=== PATIENT | male | born 1995 | race Two or more races ===

== ENCOUNTER 2018-03-02 06:49 | Emergency (ER) | payer MEDICAID ==
[~2018-03-02] VITALS: Ht 180.3 cm; Wt 64.0 kg
[2018-03-02] MEDS ORDERED: AMOX-422 PO (07:28)
[2018-03-02] MEDS ORDERED: HYDR-4353 PO (07:28)
[2018-03-02 07:36] VITALS: BP 122/89
== END 2018-03-02 07:37 | disposition home or self-care (01) ==
LOC: ER 06:50
DX: K04.7 Periapical abscess without sinus (principal); K02.9 Dental caries, unspecified; Z79.899 Other long term (current) drug therapy
CPT/HCPCS: 99283

== ENCOUNTER 2019-02-05 15:51 | Emergency (ER) | payer MEDICAID ==
[~2019-02-05] VITALS: Ht 180.3 cm; Wt 68.2 kg
[2019-02-05] MEDS ORDERED: normal saline 1000ML IV soln IV ONE (17:25)
[2019-02-05 17:55] LABS: BASOPHILS % (AUTO) 0.3 % (0-1); EOSINOPHILS # (AUTO) 0.1 X10'3 (0-0.9); EOSINOPHILS % (AUTO) 1.7 % (0-6); HEMOGLOBIN 14.8 g/dl (14.0-17.9); LYMPHOCYTES # (AUTO) 2.5 X10'3 (1.1-4.8); MEAN CORPUSCULAR HEMOGLOBIN 28.5 PG (27.0-31.0); MEAN CORPUSCULAR HGB CONC 33.7 g/dL (33.0-36.5); MEAN CORPUSCULAR VOLUME 84.7 FL (78-98); MEAN PLATELET VOLUME 8.1 FL (7.4-10.4); MONOCYTES # (AUTO) 0.9 X10'3 (0-0.9); MONOCYTES % (AUTO) 11.1 % (2-12); NEUTROPHILS # (AUTO) 4.7 X10'3 (1.8-7.7); NEUTROPHILS % (AUTO) 56.9 % (42-75); PLATELET COUNT 254 X10'3 (140-440); RED CELL DISTRIBUTION WIDTH 13.4 % (11.5-14.5); WHITE BLOOD COUNT 8.3 X10'3 (4.5-11.0)
[2019-02-05 18:07] LABS: PARTIAL THROMBOPLASTIN TIME 28 SECONDS (22-32)
[2019-02-05 18:23] LABS: ALANINE AMINOTRANSFERASE 141 U/L (12-78); ALBUMIN/GLOBULIN RATIO 0.8 (1.1-1.5); ALKALINE PHOSPHATASE 118 IU/L (46-116); ANION GAP 7 (8-16); ASPARTATE AMINO TRANSFERASE 56 U/L (10-37); BILIRUBIN,TOTAL 0.5 MG/DL (0.1-1.0); BLOOD UREA NITROGEN 7 MG/DL (7-18); BUN/CREATININE RATIO 7.2 (5.4-32.0); CALCIUM 9.4 MG/DL (8.5-10.1); CHLORIDE 103 MMOL/L (99-107); CREATININE 0.97 MG/DL (0.60-1.10); GLUCOSE 105 MG/DL (70-104); MAGNESIUM 2.2 MG/DL (1.5-2.4); POTASSIUM 4.4 MMOL/L (3.5-5.1); SODIUM 139 MMOL/L (135-145); TOTAL PROTEIN 8.8 G/DL (6.4-8.2); eGFR > 90 ML/MIN
[2019-02-05] MEDS ORDERED: SULF1TAB49 PO (18:41)
[2019-02-05] MEDS ORDERED: CEPH500C5 PO (18:41)
[2019-02-05 19:28] VITALS: BP 115/73
== END 2019-02-05 19:51 | disposition home or self-care (01) ==
LOC: ER 15:52
DX: L03.113 Cellulitis of right upper limb (principal); F19.20 Other psychoactive substance dependence, uncomplicated; R79.1 Abnormal coagulation profile; Z79.899 Other long term (current) drug therapy
CPT/HCPCS: 36415; 80053; 83605; 83735; 84145; 85025; 85610; 85730; 87040; 93005; 99284; J7030; J7040

== ENCOUNTER 2024-05-09 23:32 | Emergency (ER) | payer MEDICAID ==
[~2024-05-09] VITALS: Ht 175.3 cm; Wt 87.1 kg
[2024-05-09 23:35] VITALS: BP 126/98; PULSE 99; RESP 15; O2SAT 100
[2024-05-10] MEDS ORDERED: ERYT1OIN6 LEFTEYE (01:31)
[2024-05-10 01:47] VITALS: TEMP 96.6
== END 2024-05-10 02:21 | disposition home or self-care (01) ==
LOC: ER 23:33
DX: H01.006 Unspecified blepharitis left eye, unspecified eyelid (principal); F17.200 Nicotine dependence, unspecified, uncomplicated
CPT/HCPCS: 99283

== ENCOUNTER 2025-02-24 13:24 | Inpatient (IN) | payer MEDICAID ==
[~2025-02-24] VITALS: Ht 172.7 cm; Wt 97.0 kg
--- NOTE | 2025-02-24 13:44 | Physician Documentation ---
History of Present Illness ~ Chief Complaint: Wound Stated Complaint: PAINFUL LEG INFECTION Time Seen by MD: 15:59 OK to notify your PCP?: Yes Primary Medical Doctor: Terry Source: patient Mode of Arrival: POV Exam Limitations: no limitations HPI This is a this is a 30-year-old male who comes in complaining of redness swelling and pain in his right lower extremity. The patient states that has began about a month ago in his gotten progressively worse. He denies history of diabetes. He denies discharge from the area. He denies fever though he has had subjective chills. Today his pulse rate was 130 Tetanus within 5 years?: No (unk) Medication Reconciliation Allergies: Coded Allergies: No Known Allergies (Unverified , 02/24/25) Scheduled Amox Tr/Potassium Clavulanate (Augmentin 875-125 Tablet), 1 TAB PO Q12H Naltrexone Hcl (Naltrexone Hcl), 1 TAB PO DAILY Saccharomyces Boulardii (Florastor), 1 CAP PO Q12H Discontinued Medications Doxycycline Monohydrate (Doxycycline Monohydrate), 1 CAP PO BID, (Reported) Past Medical History Past Medical History: No Pertinent History Past Surgical History: no surgical history Alcohol Use: None Drug Use: none Lives with: Family Lives In: Home Occupation: student Physical Exam Vital Signs: Temperature: 97.7, Source: Temporal, Heart Rate: 123, Respiratory Rate: 15, BP: 141/75, Pulse Oximetry: 97, Weight: 97.000 Progress Results/Orders Results/Orders Orders - RADHA HWANG MD Chest,Single View (02/24/25 13:57) Monitor (02/24/25 13:41) Oxygen (02/24/25 13:41) Saline Lock (02/24/25 13:41) Ct Lower Extremity (02/24/25 ) Page Hospitalist (02/24/25 17:56) Completed Orders - RADHA HWANG MD Cbc/Diff (02/24/25 13:41) Culture Blood (02/24/25 13:41) Chest,Single View (02/24/25 13:57) Procalcitonin (02/24/25 13:41) BMP (02/24/25 13:41) Ceftriaxone 2gm/D5w 50ml Bag (Rocephin 2 (02/24/25 17:20) Vancomycin*Pharmacy To Dose* (Vancomycin (02/24/25 17:20) Ct Lower Extremity (02/24/25 ) Iohexol 300mg/Ml 100ml Inj. (Omnipaque-3 (02/24/25 18:01) Ua W/Microscopic, Cult If Ind (02/25/25 01:31) Laboratory Tests Test 02/24/25 14:11 White Blood Count 12.1 H Red Blood Count 5.23 Hemoglobin 14.6 Hematocrit 44.5 Mean Corpuscular Volume 85.1 Mean Corpuscular Hemoglobin 27.9 Mean Corpuscular Hemoglobin Concent 32.9 L Red Cell Distribution Width 13.5 Platelet Count 184 Mean Platelet Volume 8.2 Neutrophils (%) (Auto) 90.3 H Lymphocytes (%) (Auto) 4.4 L Monocytes (%) (Auto) 4.9 Eosinophils (%) (Auto) 0.3 Basophils (%) (Auto) 0.1 Neutrophils # (Auto) 11.0 H Lymphocytes # (Auto) 0.5 L Monocytes # (Auto) 0.6 Eosinophils # (Auto) 0.0 Basophils # (Auto) 0.0 CBC Comment Sodium Level 139 Potassium Level 3.9 Chloride Level 102 Carbon Dioxide Level 28.8 Anion Gap 8 Blood Urea Nitrogen 11 Creatinine 1.08 Estimated GFR/1.73 m2 81 BUN/Creatinine Ratio 10.2 Glucose Level 127 H Calcium Level 9.2 Albumin 4.0 Procalcitonin 1.63 H Chemistry Comments Microbiology Date/Time Source Procedure Growth Status 02/24/25 14:52 Blood Blood Culture - Final NO GROWTH AFTER 5 DAYS Complete Medical Decision Making Additional information obtaine: N/A Findings Cellulitis of right lower leg. Differential Dx:Considerations: Include: Abscess, Cellulitis Additional Comment Cellulitis. Sepsis. Departure Disposition: 09 ADMITTED INPATIENT Impression: Primary Impression: Cellulitis of leg without foot, right Condition: Stable Referrals: NO PRIMARY CARE PROVIDER (PCP) Prescriptions Saccharomyces Boulardii (Florastor) 250 Mg Capsule 1 CAP PO Q12H for loose stool for 10 Days, #20 CAP 0 Refills Prov: BRO BARRERA DO 02/26/25 Amox Tr/Potassium Clavulanate (Augmentin 875-125 Tablet) 1 Each Tablet 1 TAB PO Q12H for 7 Days, #14 TAB Prov: BRO BARRERA DO 02/26/25 Naltrexone Hcl (Naltrexone Hcl) 50 Mg Tablet 1 TAB PO DAILY for 30 Days, #30 TAB 0 Refills Prov: BRO BARRERA DO 02/26/25 Education Educated: Patient Educated regarding: diagnosis, treatment, prognosis Signature Scribe Signature: . Attestation: . CHICHO GUZMAN Feb 24, 2025 13:44 RADHA HWANG MD Feb 24, 2025 17:25
--- NOTE | 2025-02-24 14:17 | RADIOLOGY REPORT ---
CHEST RADIOGRAPH INDICATION: sepsis TECHNIQUE: Single frontal view of the chest was obtained. COMPARISON: None FINDINGS: No focal consolidation. No significant pleural effusion. No pneumothorax. Nonenlarged cardiomediastinal silhouette. IMPRESSION: No acute pulmonary process.
[2025-02-24 14:37] LABS: MEAN PLATELET VOLUME 8.2 FL (7.4-10.4); RED CELL DISTRIBUTION WIDTH 13.5 % (11.5-14.5)
[2025-02-24 14:43] LABS: CREATININE 1.08 MG/DL (0.60-1.10); TOTAL CARBON DIOXIDE 28.8 MMOL/L (24-32); eCRCL 98 ML/MIN; eGFR 81 ML/MIN
[2025-02-24] MEDS ORDERED: DOXY100C43 PO (17:22)
[2025-02-24] MEDS: CefTRIAXone 2gm/D5W 50ml BAG 50 ML IV ONE (17:50)
[2025-02-24] MEDS ORDERED: iohexol 300mg/ml 100ml inj. ONE (18:01)
[2025-02-24] MEDS ORDERED: ondansetron/PF 4mg/2ml inj IV PRN (18:15)
[2025-02-24] MEDS ORDERED: potassium Cl 40MEQ/1/2NS 520ml 520 ML IV PRN (18:15)
[2025-02-24] MEDS ORDERED: magnesium hydroxide 30ml (MOM) UD suspension PO PRN (18:15)
[2025-02-24] MEDS ORDERED: magnesium sulf-water 2g/50mL 50 ML IV PRN (18:15)
[2025-02-24] MEDS ORDERED: potassium Cl 20 mEq SR tablet PO PRN ×2 (18:15)
[2025-02-24] MEDS ORDERED: mag hydrox/Alum hydrox/simeth 30ml oral suspension PO PRN (18:15)
[2025-02-24] MEDS ORDERED: magnesium sulf-water 4G/100mL 100 ML IV PRN (18:15)
[2025-02-24] MEDS ORDERED: HYDROmorphone inj. 0.5 MG/0.5 ML DISP.SYRIN IV PRN (18:15)
--- NOTE | 2025-02-24 18:38 | RADIOLOGY REPORT ---
EXAM: CT CT LOWER EXTREMITY W/ IV CONTRAST INDICATION: Cellulitis/abscess/necrotizing fasciitis, RT LOWER LEG TECHNIQUE: Axial images of right lower extremity with intravenous contrast have been obtained along with coronal and sagittal reformatted images. All CT scans at this facility use dose modulation, iterative reconstruction, and/or weight based dosing when appropriate to reduce radiation dose to as low as reasonably achievable. COMPARISON: None FINDINGS: BONES: No CT evidence of an acute fracture or aggressive osseous lesion. MUSCLES: Surrounding subcutaneous adipose tissue edema without definitive drainable fluid collection. No soft tissue emphysema to suggest necrotizing component. Edema insinuating primarily along the anterior investing fascia of the calf which may represent fasciitis. JOINT SPACES: No significant right knee joint effusion. TENDONS/LIGAMENTS: Intact. OTHER: None. IMPRESSION: 1. No CT evidence of an acute fracture or aggressive osseous lesion. 2. Surrounding subcutaneous adipose tissue edema without definitive drainable fluid collection. 3. No soft tissue emphysema to suggest necrotizing component. 4. Edema insinuating primarily along the anterior investing fascia of the calf which may represent fasciitis.
--- NOTE | 2025-02-24 18:51 | HISTORY AND PHYSICAL ---
History & Physical Providers to CC ~ History of Present Illness Reason for Admit\Complaint: Right lower extremity cellulitis with secondary sepsis History of Present Illness This is a 30-year-old male who presents to ED with a one day history of fever and chills with a chief complaint of right lower extremity erythema and edema x3 weeks. The patient has not taken any antibiotics. The right lower extremity is significantly more edematous than the left and on the anterior distal lower extremities bilaterally there are a handful scattered ulcerations that are approximately 5 mm in diameter. The patient is tachycardic with a heart rate in the 130s [place] [address] with a neutrophil % of 90.3%- the patient is on IV Zosyn and IV vancomycin CT scan was obtained which was negative for any abscess or osteomyelitis however this a possible fasciitis is no pockets of gas either Allergies: Coded Allergies: No Known Allergies (Unverified , 02/24/25) Home Medications Home Medications Active Doxycycline Monohydrate 100 Mg Capsule 100 Mg PO BID may sub doxycycline hyclate or azithromycin z-pack as prescribed Past Medical History Past Medical History No chronic health problems Past Surgical History Surgical History Comment No prior surgeries Family History Family History: Patient reports no known family medical history. Past Social History Social History Comment The patient is smokes a pack of cigarettes a day, rarely drinks alcohol, history of methamphetamine use last time per the patient has smoked meth was a couple of weeks ago. Full code status ROS ROS Except for positives in the HPI the rest of the 14 point review systems is negative Exam Vitals: Vital Signs Date Time Temp Pulse Resp B/P (MAP) Pulse Ox O2 Delivery O2 Flow Rate FiO2 02/24/25 17:15 98.1 126 22 106/65 (79) 96 0 02/24/25 15:16 Room Air* 21 General: Gen. No acute distress alert and oriented 4 Lungs clear to ascultation bilaterally, no wheezes rales or rhonchi appreciated Heart normal sinus rhythm no murmurs rubs or clicks noted Abdomen soft nontender bowel sounds are normoactive Lower extremities no clubbing cyanosis, mild left lower extremity edema, significant right lower extremity edema with distal erythema, superficial ulcerations scattered bilateral lower extremity approximately 5 mm in diameter. Diagnostic Data Last Recorded Lab Results: 02/24/25 1411 02/24/25 1411 Counseling Services Smoking & Tobacco Cessation: > 10 Minutes Advance Care Planning Advanced Care plannin - 30 Minutes Problems: (1) Sepsis Additional Plan # sepsis # right lower extremity cellulitis 2 L IV fluid bolus Normal saline 100 cc an hour IV Zosyn and IV vancomycin Blood culture x2 Wound care consult # Tobacco use disorder-I spent 12 minutes discussing smoking cessation with the patient including the risk of continuing smoke: Lung cancer, stroke, heart attack, poor wound healing, increased in facial wrinkling, risk of MRSA skin infections. The expense of smoking cigarettes and how cigarettes have been scientifically engineered to be as addictive as humanly possible. The patient has accepted a 21 mg nicotine patch. # methamphetamine use disorder Substance use navigator Ning Ferguson consult is ordered # DVT prophylaxis Ambulation I spent a total of 16 minutes on reviewing various resuscitative measures/ ACP with the patient at the time of admission. The patient has decided on full code status Date of Service: Feb 24, 2025 Billing Provider: BRO BARRERA DO Common Visit Codes: 45420-[id number] INP/OBS CARE (HIGH) Secondary Visit Codes: 64946-UWOCP CHNG SMOKING >10MIN, 84915-VNOROFPS CARE PLAN 30 MINUTES BRO BARRERA DO Feb 24, 2025 18:51
[2025-02-24] MEDS: vancomycin/NS 1 GM ADD-VANTAGE 250 ML IV SCH (19:50)
[2025-02-24] MEDS: normal saline 1000ml 1,000 ML IVB ONE (19:55)
[2025-02-24] MEDS: K and/or MAG REPLACEMENT MC SCH (20:00)
[2025-02-24] MEDS: docusate sod 100mg capsule PO SCH (20:00)
[2025-02-25] MEDS: normal saline 1000ml 1,000 ML IV SCH (01:19)
[2025-02-25 01:50] LABS: LEUKOCYTE ESTERASE ,URINE NEGATIVE (Neg); NITRITES, URINE NEGATIVE (Neg); OCCULT BLOOD,URINE NEGATIVE (Neg)
[2025-02-25 01:55] LABS: UA COLLECTION TYPE CLN CATCH MIDSTREAM
[2025-02-25 01:57] LABS: SQUAMOUS EPITHELIAL CELL,UR NONE SEEN /LPF (FEW); URINE AMPHETAMINE SCREEN POSITIVE (Neg); URINE BARBITUATE SCREEN NEGATIVE (Neg); URINE BENZODIAZEPINES SCREEN NEGATIVE (Neg); URINE CANNABINOID SCREEN NEGATIVE (Neg); URINE COCAINE SCREEN NEGATIVE (Neg); URINE METHADONE SCREEN NEGATIVE (Neg); URINE OPIATE SCREEN NEGATIVE (Neg); URINE PHENCYCLIDINE SCREEN NEGATIVE (Neg)
[2025-02-25] MEDS: HYDROmorphone inj. 0.5 MG/0.5 ML DISP.SYRIN IV PRN (02:02)
[2025-02-25] MEDS: piperacillin/tazo 4.5gm/100ml 100 ML IV SCH (02:03)
[2025-02-25 02:40] LABS: MEAN PLATELET VOLUME 7.9 FL (7.4-10.4); RED CELL DISTRIBUTION WIDTH 13.7 % (11.5-14.5)
[2025-02-25 02:51] LABS: CREATININE 1.12 MG/DL (0.60-1.10); TOTAL CARBON DIOXIDE 24.7 MMOL/L (24-32); eCRCL 94 ML/MIN; eGFR 78 ML/MIN
[2025-02-25 08:00] VITALS: BP 102/57; PULSE 112; RESP 14; TEMP 99.9; O2SAT 95
[2025-02-25] MEDS: nicotine 21mg patch - 24 hr TD SCH (08:25)
--- NOTE | 2025-02-25 09:14 | VASCULAR REPORT ---
VASC VL VENOUS VL VENOUS 02/25/2025 07:06 AM CLINICAL HISTORY: Right lower extremity pain and swelling. COMPARISON: None TECHNIQUE: Duplex Doppler evaluation of the deep venous system of the right lower extremity from the common femoral vein to the popliteal vein including color Doppler and spectral/pulsed waveform analysis was performed. FINDINGS: The common femoral vein demonstrates appropriate compressibility and waveform variability. There is compressibility/patency of the great saphenous vein at the proximal thigh. The femoral vein demonstrates appropriate compressibility and waveform variability. The deep femoral vein demonstrates appropriate compressibility and waveform variability. The popliteal vein demonstrates appropriate compressibility and waveform variability. There is color flow in the tibioperoneal trunk and posterior tibial vein. A prominent, 5.6 x 2.5 cm morphologically benign lymph node noted in the right groin, likely reactive in nature. Correlate clinically. IMPRESSION: 1. No deep venous thrombosis right lower extremity. If clinical concern/symptoms persist or worsen, short-interval follow-up study is suggested.
[2025-02-25 10:00] VITALS: BP 104/56; PULSE 81; RESP 17; TEMP 98.8; O2SAT 95
[2025-02-25] MEDS ORDERED: DOXY-460 PO (16:17)
[2025-02-25 18:00] VITALS: BP 109/60; PULSE 77; RESP 19; TEMP 99; O2SAT 99
[2025-02-25] MEDS: VANCOMYCIN LEVEL IV ONE (19:18)
[2025-02-25 20:00] VITALS: RESP 19; O2SAT 99
--- NOTE | 2025-02-25 20:41 | PROGRESS NOTE ---
Daily Progress Note Providers to CC ~ Antibiotic Timeout Antibiotic Ordered?: Yes Subjective The patient continues to have significant erythema and edema of his right lower extremity the patient does feel better however- the patient remains septic this morning however as of late morning the patient is no longer septic and no longer febrile or tachycardic blood cultures are negative so far Objective Vital Signs Date Time Temp Pulse Resp B/P (MAP) Pulse Ox O2 Delivery O2 Flow Rate FiO2 02/25/25 18:30 94 02/25/25 10:00 98.8 17 104/56 (72) 95 Room Air 02/25/25 08:00 0.0 21 Result Diagram: 02/25/2521402/25/25214 Gen. No acute distress alert and oriented 4 Lungs clear to ascultation bilaterally, no wheezes rales or rhonchi appreciated Heart normal sinus rhythm no murmurs rubs or clicks noted Abdomen soft nontender bowel sounds are normoactive Lower extremities no clubbing cyanosis, mild left lower extremity edema, significant right lower extremity edema with distal erythema, superficial ulcerations scattered bilateral lower extremity approximately 5 mm in diameter. Problem\Assessment\Plan Problems/Diagnosis: (1) Sepsis # sepsis # right lower extremity cellulitis 2 L IV fluid bolus Normal saline 100 cc an hour IV Zosyn and IV vancomycin Blood culture x2 blood cultures are negative thus far Wound care consult occurred today 02/25 as of 10:00 a.m. the patient is no longer septic # Tobacco use disorder-I spent 12 minutes discussing smoking cessation with the patient including the risk of continuing smoke: Lung cancer, stroke, heart attack, poor wound healing, increased in facial wrinkling, risk of MRSA skin infections. The expense of smoking cigarettes and how cigarettes have been scientifically engineered to be as addictive as humanly possible. The patient has accepted a 21 mg nicotine patch. # methamphetamine use disorder Substance use navigator Ning Ferguson consult is ordered # DVT prophylaxis Ambulation Date of Service: Feb 25, 2025 Billing Provider: BRO BARRERA DO Common Visit Codes: [id number] INP/OBS CARE(HIGH) BRO BARRERA DO Feb 25, 2025 20:41
[2025-02-25 22:00] VITALS: BP 119/70; PULSE 93; RESP 16; TEMP 99.3; O2SAT 97
[2025-02-26 05:15] LABS: MEAN PLATELET VOLUME 8.2 FL (7.4-10.4); RED CELL DISTRIBUTION WIDTH 13.6 % (11.5-14.5)
[2025-02-26 05:27] LABS: CREATININE 0.80 MG/DL (0.60-1.10); TOTAL CARBON DIOXIDE 23.6 MMOL/L (24-32); eCRCL 132 ML/MIN; eGFR > 90 ML/MIN
[2025-02-26 06:00] VITALS: BP_SYST 124; BP_SYST 24; BP_DIAS 82; PULSE 95; RESP 18; TEMP 98.1; O2SAT 97
[2025-02-26 08:00] VITALS: RESP 18; O2SAT 97
[2025-02-26 10:00] VITALS: BP 124/88; PULSE 88; RESP 18; TEMP 98.4; O2SAT 99
[2025-02-26] MEDS: VANCOmycin 1250MG/NS 250ml Bag 250 ML IV SCH (11:03)
[2025-02-26] MEDS ORDERED: AMOX-117 PO (13:13)
[2025-02-26] MEDS ORDERED: SACC250C PO (13:13)
[2025-02-26] MEDS ORDERED: NALT50TA5 PO (13:13)
--- NOTE | 2025-02-26 19:53 | DISCHARGE SUMMARY ---
Discharge Summary Providers to CC ~ Discharge Summary Admission Diagnosis: CELLULITIS / SEPSIS Hospital Course DATE OF ADMISSION: 02/24/2025 DATE OF DISCHARGE: 02/26/2025 Discharge Diagnosis\Comment: Sepsis Right lower extremity cellulitis Tobacco use disorder Methamphetamine use disorder Operations\Procedures: None Consultants: Substance use navigbratolo Ferguson consult is ordered Complications: None Condition on DC: Stable New Medications: Amox Tr/Potassium Clavulanate (Augmentin 875-125 Tablet) 1 Each Tablet 1 TAB PO Q12H for 7 Days, #14 TAB Naltrexone Hcl (Naltrexone Hcl) 50 Mg Tablet 1 TAB PO DAILY for 30 Days, #30 TAB 0 Refills Saccharomyces Boulardii (Florastor) 250 Mg Capsule 1 CAP PO Q12H for loose stool for 10 Days, #20 CAP 0 Refills Discontinued Medications: Doxycycline Monohydrate (Doxycycline Monohydrate) 100 Mg Capsule 1 CAP PO BID for 10 Days, #20 CAP Discharge Summary: I admitted the patient with the following HPI: This is a 30-year-old male who presents to ED with a one day history of fever and chills with a chief complaint of right lower extremity erythema and edema x3 weeks. The patient has not taken any antibiotics. The right lower extremity is significantly more edematous than the left and on the anterior distal lower extremities bilaterally there are a handful scattered ulcerations that are approximately 5 mm in diameter. The patient is tachycardic with a heart rate in the 130s [place] [address] with a neutrophil % of 90.3%- the patient is on IV Zosyn and IV vancomycin CT scan was obtained which was negative for any abscess or osteomyelitis however this a possible fasciitis is no pockets of gas either. The patient is edema and erythema modestly improved on the morning of the however by the morning of the that has significant improvement in the edema and erythema of his right lower extremity. Ultrasound was negative for DVT the patient requested being discharged which was reasonable the patient sepsis had resolved by the morning of the and the patient is no longer febrile and his tachycardia resolved by the morning of the as well as heart rate was in the 80s to 90s. Blood cultures were negative I started the patient on naltrexone for discharge for help with his m ethamphetamine use disorder and Substance use navigator Ning Ferguson consult is ordered also evaluated the patient and gave the patient resources. The patient also was discharged with an additional week of Augmentin since he was significantly ill and had severe edema of his right lower extremity on admission also wrote for Florastor probiotic however the patient can buy an [id number] probiotic if this is not covered I did discuss smoking cessation at the time of admission the patient was given a nicotine patch during hospitalization. Gen. No acute distress alert and oriented 4 Lungs clear to ascultation bilaterally, no wheezes rales or rhonchi appreciated Heart normal sinus rhythm no murmurs rubs or clicks noted Abdomen soft nontender bowel sounds are normoactive Lower extremities no clubbing cyanosis, mild left lower extremity edema, moderate right lower extremity edema with distal erythema, superficial ulcerations scattered bilateral lower extremity approximately 5 mm in diameter. The patient felt ready to be discharged and was medically cleared to be discharged on 02/26/2025 The patient was seen and evaluated on day of discharge. Time spent on discharge 25 minutes *Problems/Diagnosis: (1) Sepsis Total Time Spent on D/C: > 30 Minutes Date of Service: Feb 26, 2025 Billing Provider: BRO BARRERA DO Common Visit Codes: [id number]/OBS DISCH DAY >30min BRO BARRERA DO Feb 26, 2025 19:53
[2025-02-27] MEDS ORDERED: VANCOMYCIN LEVEL IV ONE (10:30)
== END 2025-02-26 13:43 | disposition home or self-care (01) | DRG 720 ==
LOC: ER 13:24 → ED HOLD 18:23 → SUR 3N 02-25 07:49
PROVIDERS: ADMIT Family Medicine; ATTEND Family Medicine
PROC: BQ2R1ZZ Computerized Tomography (CT Scan) of Right Lower Extremity using Low Osmolar Contrast (ICD-10-PCS; principal; 2025-02-24)
DX: A41.9 Sepsis, unspecified organism (principal); L03.115 Cellulitis of right lower limb; F15.10 Other stimulant abuse, uncomplicated; F17.210 Nicotine dependence, cigarettes, uncomplicated
CPT/HCPCS: 36415; 71045; 73701; 80048; 80202; 80305; 81001; 83735; 84145; 85025; 87040; 87081; 93971; 96365; 99285; A6258; G0378; J0696; J1171; J2543; J3373; J3374; J7030; Q9967